=== PATIENT | female | born 2000 | race African-American/Black ===

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

== ENCOUNTER 2018-10-01 11:29 | Emergency (ER) | payer MEDICAID, OTHER ==
[~2018-10-01] VITALS: Ht 167.6 cm; Wt 49.0 kg
[2018-10-01 16:42] VITALS: BP 113/33
== END 2018-10-01 19:50 | disposition left against medical advice (07) ==
LOC: ER 11:29
DX: Z53.21 Procedure and treatment not carried out due to patient leaving prior to being seen by health care provider (principal)